=== PATIENT | female | born 1985 | race Caucasian/White ===

== ENCOUNTER 2016-11-09 12:25 | Emergency (ER) | payer OTHER ==
[~2016-11-09] VITALS: Ht 167.6 cm; Wt 65.0 kg
[~2016-11-09 12:25] MED LIST: DOXY100T17 PO; TRAM50 PO
[2016-11-09 12:33] VITALS: BP 120/63; PULSE 139; RESP 24; TEMP 98.4; O2SAT 93
[2016-11-09] MEDS ORDERED: SPRI28TA PO (13:02)
[2016-11-09 13:47] VITALS: BP 102/59; PULSE 110; RESP 15; O2SAT 97
[2016-11-09 15:00] VITALS: BP 115/64; PULSE 94; RESP 16; O2SAT 100
--- NOTE | 2016-11-09 18:49 | PD ---
HPI Chief Complaint: Alcohol/Drug Intoxication Time Seen by Provider: 12:46 Travel History International Travel<30 days: No Contact w/Intl Traveler<30days: No Traveled to known affect area: No History of Present Illness HPI 31-year-old female came to the emergency room for heroin overdose. She was given Narcan by EMS after she was found unresponsive in the hotel room by her friend. Patient says that she had a fight with her friend after which she did this. She was seen here in the emergency room and discharged this morning for the exact same issue. She seemed little groggy but was answering questions appropriately. FOR[facility]LY [facility], LATER [facility] Past Medical History Narrative Medical List of her past medical, surgical, social and family history is reviewed from the nursing note. Anxiety: Yes Depression: Yes Diminished Hearing: No Seizures: No ?: Not Past Surgical History Other Surgery: Yes (BREAST AUGMENTATION 2003) Social History Alcohol Use: Yes (none recently) Tobacco Use: Yes (04/12 ppd) Substance Use: Yes (dilaudid, last yesterday) Allergies-Medications (Allergen,Severity, Reaction): Coded Allergies: No Known Allergies (Unverified , 11/09/16) Comments No known drug allergies. Reported Meds & Prescriptions Reported Meds & Active Scripts Active Reported Sprintec 28 (Norgestimate-Ethinyl Estradiol) 0.25-35 mg-Mcg Tab 1 Tab PO DAILY Narrative Medication List of her home medications reviewed from the nursing note. Review of Systems Except as stated in HPI: all other systems reviewed are Neg Physical Exam Narrative GENERAL: Awake, alert, no obvious distress SKIN: Focused skin assessment warm/dry. Multiple track duran. HEAD: Atraumatic. Normocephalic. EYES: Pupils equal and round. No scleral icterus. No injection or drainage. ENT: No nasal bleeding or discharge. Mucous membranes pink and moist. NECK: Trachea midline. No JVD. CARDIOVASCULAR: Regular rate and rhythm. No murmur appreciated. RESPIRATORY: No accessory muscle use. Clear to auscultation. Breath sounds equal bilaterally. GASTROINTESTINAL: Abdomen soft, non-tender, nondistended. Hepatic and splenic margins not palpable. MUSCULOSKELETAL: No obvious deformities. No clubbing. No cyanosis. No edema. NEUROLOGICAL: Awake and alert. No obvious cranial nerve deficits. Motor grossly within normal limits. Normal speech. PSYCHIATRIC: Appropriate mood and affect; insight and judgment normal. Data Data Last Documented VS Vital Signs Date Time Temp Pulse Resp B/P Pulse Ox O2 Delivery O2 Flow Rate FiO2 11/09/16 15:00 94 16 115/64 100 Room Air 11/09/16 13:47 2 11/09/16 12:33 98.4 [facility] Medical Decision Making Medical Screen Exam Complete: Yes Emergency Medical Condition: Yes Medical Record Reviewed: Yes Differential Diagnosis Opiate overdose Narrative Course 6:47 PM I was just told by the nurse that patient had left earlier without telling anybody. Her friend was in the room for a while. She did not have an IV in. She remained awake and alert. She was not a [place] Act. Procedures EKG Prior to Arrival: No Diagnosis Primary Impression: Opiate overdose Qualified Code: T40.601A - Opiate overdose, accidental or unintentional, initial encounter Disposition: 07 AGAINST MEDICAL ADVICE Condition: Serious Jorge Alberto Hernandez MD Nov 09, 2016 18:49
== END 2016-11-09 19:10 | disposition left against medical advice (07) ==
LOC: NEPC 12:25
DX: T40.1X1A Poisoning by heroin, accidental (unintentional), initial encounter (principal); R40.0 Somnolence; Y92.59 Other trade areas as the place of occurrence of the external cause
CPT/HCPCS: 99283

== ENCOUNTER 2017-09-15 22:42 | Inpatient (IN) | payer OTHER ==
[~2017-09-15] VITALS: Ht 167.6 cm; Wt 57.0 kg
[~2017-09-15 22:42] MED LIST changes: -DOXY100T17 PO; +SPRI28TA PO; -TRAM50 PO
[2017-09-15 22:52] VITALS: BP 98/71; PULSE 88; RESP 20; TEMP 97.7; O2SAT 96
[2017-09-15 23:00] VITALS: BP 98/71; PULSE 86; RESP 10
--- NOTE | 2017-09-15 23:09 | PD ---
HPI Chief Complaint: OD/ Ingestion Time Seen by Provider: 22:59 Travel History International Travel<30 days: No Contact w/Intl Traveler<30days: No Traveled to known affect area: No History of Present Illness HPI 32yo F with PMH of polysubstance abuse was brought in by EVAC for what sounds like heroin overdose. Pt met a man today and went to his house and saw some white powder in the kitchen and thinks it was heroin so injected herself. EVAC said the man found her passed out on the bathroom floor and started pressing on her chest upon which she woke up immediately. Pt was not given any narcan. She did admit to using cocaine as well. Denies any chest pain, sob, n/v, abdominal pain, focal weakness or numbness. Pt is AAOx3 but said she is just angry about the situation and has no actual complaints. EVAC said the police was there and gave her the option of going [facility] and pt chose hospital. Pt has been here multiple times for heroin overdose. PFSH Past Medical History Anxiety: Yes Depression: Yes Diminished Hearing: No Seizures: No ?: Unknown Past Surgical History Other Surgery: Yes (BREAST AUGMENTATION 2003) Social History Alcohol Use: Yes (none recently) Tobacco Use: Yes (04/12 ppd) Substance Use: Yes (dilaudid, last yesterday) Allergies-Medications (Allergen,Severity, Reaction): Coded Allergies: No Known Allergies (Unverified Allergy, Unknown, 09/16/17) Reported Meds & Prescriptions Reported Meds & Active Scripts Active No Active Prescriptions or Reported Medications Reported Sprintec 28 (Norgestimate-Ethinyl Estradiol) 0.25-35 mg-Mcg Tab 1 Tab PO DAILY Review of Systems Except as stated in HPI: all other systems reviewed are Neg Physical Exam Narrative GENERAL: 32yo F not in distress. SKIN: Focused skin assessment warm/dry. HEAD: Atraumatic. Normocephalic. EYES: Pupils equal and round at 3mm. EOMI. ENT: No nasal bleeding or discharge. Mucous membranes pink and moist. NECK: Trachea midline. No JVD. CARDIOVASCULAR: Regular rate and rhythm. No murmur appreciated. RESPIRATORY: No accessory muscle use. Clear to auscultation. Breath sounds equal bilaterally. GASTROINTESTINAL: Abdomen soft, non-tender, nondistended. MUSCULOSKELETAL: No obvious deformities. No clubbing. No cyanosis. No edema. NEUROLOGICAL: Awake and alert. No obvious cranial nerve deficits. Motor grossly within normal limits in all extremities. Sensation intact. Normal speech. Data Data Last Documented VS Vital Signs Date Time Temp Pulse Resp B/P (MAP) Pulse Ox O2 Delivery O2 Flow Rate FiO2 09/16/17 01:44 98 09/15/17 23:00 86 10 98/71 (80) 09/15/17 22:52 97.7 Orders Orders Chest, Single Ap (09/15/17 ) Complete Blood Count With Diff (09/16/17 00:16) Basic Metabolic Panel (Bmp) (09/16/17 00:16) Ct Thorax/ Chest W Iv Contrast (09/16/17 ) Iohexol 350 Inj (Omnipaque 350 Inj) (09/16/17 01:22) Resp Et Co2 Monitor (09/16/17 ) Blood Culture (09/16/17 01:34) Vancomycin Inj (Vancomycin Inj) (09/16/17 01:45) Piperacil-Tazo 2.25 Gm Premix (Zosyn 2.2 (09/16/17 01:45) Type And Screen (09/16/17 01:34) Blood Product Administration (09/16/17 01:34) Sodium Chlor 0.9% 250 Ml Inj (Ns 250 Ml (09/16/17 01:45) Vancomycin Consult Pharmacy (Vancomycin (09/16/17 01:45) Cefepime Inj (Maxipime Inj) (09/16/17 09:00) Albuterol-Ipratropium Neb (Duoneb Neb) (09/16/17 01:45) Budeson-Formot 160-4.5 Mcg Inh (Symbicor (09/16/17 09:00) Guaifenesin Er (Mucinex Er) (09/16/17 09:00) Sputum Culture And Gram Stain (09/16/17 01:42) Admit To Inpatient (09/16/17 ) Vital Signs (Adult) Q4H (09/16/17 01:42) Activity Oob With Assistance (09/16/17 01:42) Guest Service Supervisor / Telemetry .CONTINUOUS (09/16/17 01:42) Intake + Output ANDREA.QSHIFT (09/16/17 01:42) Diet Regular Basic (09/16/17 Breakfast) Sodium Chlor 0.9% 1000 Ml Inj (Ns 1000 M (09/16/17 01:42) Sodium Chloride 0.9% Flush (Ns Flush) (09/16/17 01:45) Sodium Chloride 0.9% Flush (Ns Flush) (09/16/17 09:00) Metoclopramide Inj (Reglan Inj) (09/16/17 01:45) Comprehensive Metabolic Panel (09/17/17 06:00) Complete Blood Count With Diff (09/17/17 06:00) Scd Bilateral/Knee High ANDREA.BID (09/16/17 01:42) Rudi Bilateral/Knee High ANDREA.QSHIFT (09/16/17 01:48) Acetaminophen (Tylenol) (09/16/17 01:45) Docusate Sodium-Senna (Mitzi-Colace) (09/16/17 09:00) Magnesium Hydroxide Liq (Milk Of Magnesi (09/16/17 01:45) Sennosides (Senokot) (09/16/17 01:45) Bisacodyl Supp (Dulcolax Supp) (09/16/17 01:45) Lactulose Liq (Lactulose Liq) (09/16/17 01:45) Inpatient Certification (09/16/17 ) Admit Order (Ed Use Only) (09/16/17 01:52) Ferritin (09/16/17 00:53) Iron/Tibc Profile (09/16/17 00:53) Labs Laboratory Tests Test 09/16/17 00:53 White Blood Count 17.0 TH/MM3 Red Blood Count 4.66 MIL/MM3 Hemoglobin 6.9 GM/DL Hematocrit 24.6 % Mean Corpuscular Volume 52.7 FL Mean Corpuscular Hemoglobin 14.8 PG Mean Corpuscular Hemoglobin Concent 28.1 % Red Cell Distribution Width 24.3 % Platelet Count 420 TH/MM3 Mean Platelet Volume 7.9 FL Neutrophils (%) (Auto) 76.1 % Lymphocytes (%) (Auto) 11.4 % Monocytes (%) (Auto) 9.7 % Eosinophils (%) (Auto) 2.6 % Basophils (%) (Auto) 0.2 % Neutrophils # (Auto) 12.9 TH/MM3 Lymphocytes # (Auto) 1.9 TH/MM3 Monocytes # (Auto) 1.7 TH/MM3 Eosinophils # (Auto) 0.4 TH/MM3 Basophils # (Auto) 0.0 TH/MM3 CBC Comment AUTO DIFF Differential Total Cells Counted 100 Neutrophils % (Manual) 86 % Band Neutrophils % 2 % Lymphocytes % 6 % Monocytes % 5 % Eosinophils % 1 % Neutrophils # (Manual) 15.0 TH/MM3 Differential Comment FINAL DIFF MANUAL Toxic Granulation 3+ Platelet Estimate NORMAL Platelet Morphology Comment NORMAL Tear Drop Cells 1+ Ovalocytes 1+ Acanthocytes OCC Blood Urea Nitrogen 14 MG/DL Creatinine 0.81 MG/DL Random Glucose 96 MG/DL Calcium Level 8.4 MG/DL Sodium Level 137 MEQ/L Potassium Level 4.6 MEQ/L Chloride Level 103 MEQ/L Carbon Dioxide Level 26.0 MEQ/L Anion Gap 8 MEQ/L Estimat Glomerular Filtration Rate 81 ML/MIN Iron Level 27 MCG/DL Total Iron Binding Capacity 255 MCG/DL Percent Iron Saturation 10.6 % Ferritin 78 NG/ML MDM Medical Decision Making Medical Screen Exam Complete: Yes Emergency Medical Condition: Yes Differential Diagnosis Heroin overdose vs. polysubstance abuse Narrative Course 32yo F here with what sounds like a heroin overdose. Pt is easily arousable but does nod off. Placed on end tidal CO2 monitoring. Did not give narcan initially because she is easily arousable and saturating at 97% when fully awake. Pt had chest compressions so CXR was ordered. CXR showed multiple densities throughout the lungs possible multifocal bronchopneumonia versus metastatic disease. Pt did mention having infection in her blood in another hospital and she signed AMA. Not a good historian and does not know how long ago it was. Pt is at risk for septic emboli so CT chest ordered. CT chest with contrast showed innumerable round patchy areas of infiltrate scattered throughout the lungs. No PE. Multifocal bronchopneumonia most likely consideration. Labs reviewed, leukocytosis at 17,000. H/H is low at 6.9/24.6. This is decreased from 10.5/33.5 on 03/2016. +Toxic granulation. Pt empirically covered with vancomycin and zosyn. Blood cultures drawn. Discussed with Dr. Sullivan and accepted to her service. Pt is on the CO2 monitoring and her RR is down to 6 and there are periods where she becomes apneic so decided to give narcan 0.2mg. Pt responded immediately. She was then given another dose of narcan 0.2mg IV because her respiration went down again. Feel that since pt needs continuous CO2 monitoring, decided to upgrade pt to CIC. Pt is waiting for a CIC bed and after total of 0.4mg narcan, still going back down to RR 7 so started on narcan drip. Will start low at 0.2mg an hour and titrate as needed. Critical Care Narrative Aggregate critical care time was 50 minutes. Time to perform other separately billable procedures was not included in the critical care time. My time did not include minutes spent treating any other patients simultaneously or on activities that did not directly contribute to the patient's treatment. The services I provided to this patient were to treat and/or prevent clinically significant deterioration that could result in: cardiovascular collapse or . I provided critical care services requiring my management, as noted below: Chart data review, documentation time, medication orders and management, vital sign assessments/reviewing monitor data, ordering and reviewing lab tests, ordering and interpreting/reviewing x-rays and diagnostic studies, care of the patient and discussion of the patient with the admitting physicians. HemaPrompt Point of Care Internal Pos. & Neg. Controls: Passed Fecal Specimen Occult Blood: Negative Diagnosis Primary Impression: Accidental heroin overdose Qualified Codes: T40.1X1A - Poisoning by heroin, accidental (unintentional), initial encounter Additional Impression: Pneumonia Qualified Codes: J18.9 - Pneumonia, unspecified organism Admitting Information Admitting Physician Requests: it Shelli Hurley DO Sep 15, 2017 23:09
--- NOTE | 2017-09-15 23:29 | RADRPT ---
EXAM DATE: 09/15/2017 11:23 PM EDT AGE/SEX: 32 years / Female INDICATIONS: Cough and congestion. CLINICAL DATA: This is the patient's initial encounter. Patient reports that signs and symptoms have been present for 1 day and indicates a pain score of Nonresponsive. MEDICAL/SURGICAL HISTORY: Non-responsive. Non-responsive. COMPARISON: No prior exams available for comparison. FINDINGS: There is a rounded infiltrate or masses throughout the lungs. There is a lobulated 7.3 x 7.6 cm densi ty arising around the right hilum. There is a 4 cm mass adjacent to left cardiac border. There are ot her nodular densities throughout the lungs. Multifocal bronchopneumonia is within the differential. CONCLUSION: Multiple densities throughout the lungs possible multifocal bronchopneumonia versus metastatic diseas e, obviously unusual for a 32-year-old female Electronically signed by: Jasen Madrid MD 09/15/2017 11:28 PM EDT
[2017-09-16] VITALS (13 sets, daily range): BP systolic 103–129; BP diastolic 58–82; PULSE 52–96; RESP 11–18; TEMP 97.4–99.8; O2SAT 93–100
[2017-09-16 01:08] LABS: AUTOMATED NEUTROPHIL # 12.9 TH/MM3 (1.8-7.7); BASOPHIL % 0.2 % (0.0-2.0); EOSINOPHIL # 0.4 TH/MM3 (0-0.4); EOSINOPHIL % 2.6 % (0.0-4.0); HEMATOCRIT 24.6 % (35.0-46.0); LYMPH % 11.4 % (9.0-44.0); LYMPHOCYTE # 1.9 TH/MM3 (1.0-4.8); MEAN CELL VOLUME 52.7 FL (80.0-100.0); MEAN CORPUSCULAR HEMOGLOBIN 14.8 PG (27.0-34.0); MEAN PLATELET VOLUME 7.9 FL (7.0-11.0); MONO % 9.7 % (0.0-8.0); MONOCYTE # 1.7 TH/MM3 (0-0.9); NEUT % 76.1 % (16.0-70.0); PLATELET COUNT 420 TH/MM3 (150-450); RED BLOOD COUNT 4.66 MIL/MM3 (4.00-5.30); RED CELL DISTRIBUTION WIDTH 24.3 % (11.6-17.2)
[2017-09-16 01:11] LABS: MEAN CORPUSCULAR HGB CONC 28.1 % (32.0-36.0)
[2017-09-16 01:14] LABS: HEMOGLOBIN 6.9 GM/DL (11.6-15.3)
[2017-09-16 01:17] LABS: BLOOD UREA NITROGEN 14 MG/DL (7-18); CALCIUM 8.4 MG/DL (8.5-10.1); CHLORIDE 103 MEQ/L (98-107); CREATININE 0.81 MG/DL (0.50-1.00); GLOMERULAR FILTRATION RATE 81 ML/MIN (>89); GLUCOSE,RANDOM 96 MG/DL (74-106); SODIUM (NA) 137 MEQ/L (136-145)
[2017-09-16] MEDS ORDERED: IOHEXOL 350 MG/ML 10 ML VIAL (for RAD DIAG) IVCONTRAST ONE (01:22)
--- NOTE | 2017-09-16 01:28 | RADRPT ---
EXAM DATE: 09/16/2017 1:22 AM EDT AGE/SEX: 32 years / Female INDICATIONS: Abnormal chest x-ray. CLINICAL DATA: This is the patient's initial encounter. Patient reports that signs and symptoms have been present for 1 day and indicates a pain score of 0/10. MEDICAL/SURGICAL HISTORY: . Substance abuse. None. RADIATION DOSE: 7.72 CTDI (mGy) COMPARISON: No prior exams available for comparison. TECHNIQUE: Multiple contiguous axial images were obtained through the chest during bolus infusion of 75 ml Omnipaque 350 (iohexol) nonionic water-soluble contrast as a single exam dose. Images were obtained in suspended respiration using multiple row detector helical technique. Using automated exp osure control and adjustment of the mA and/or kV according to patient size, radiation dose was kept a s low as reasonably achievable to obtain optimal diagnostic quality images. FINDINGS: Lungs: There are innumerable rounded parenchymal densities scattered throughout the lungs. There are air bronchograms from the masses suggesting multifocal areas of airspace disease possible pneumonia. Mediastinum: There is good visualization of the great vessels of the middle mediastinum. No evidenc e of mediastinal or hilar adenopathy/mass. Pleurae: No evidence of focal thickening or pleural effusion. Axillae: Unremarkable. Bony Structures: Unremarkable. Miscellaneous: The examination was extended to include the upper abdomen, and both adrenal glands ar e normal in size and configuration. CONCLUSION: 1. Innumerable rounded patchy areas of infiltrate scattered throughout the lungs. I don't see any ev idence of a pulmonary embolism. Multifocal bronchopneumonia most likely consideration. Electronically signed by: Jasen Madrid MD 09/16/2017 1:26 AM EDT
[2017-09-16 01:38] LABS: BANDS 2 % (0-6); LYMPHOCYTES 6 % (9-44); MONOCYTES 5 % (0-8); POLYS (SEG NEUTROPHILS) 86 % (16-70)
[2017-09-16 01:39] LABS: TOXIC GRANULATION 3+ (NORMAL)
[2017-09-16 01:40] LABS: ACANTHOCYTES OCC (NORMAL); OVALOCYTES 1+ (NORMAL); TEARDROP RBCS 1+ (NORMAL)
[2017-09-16] MEDS ORDERED: SODIUM CHLOR 0.9% 250 ML INJ 250 ML IV ONE (01:45)
[2017-09-16] MEDS ORDERED: SENNOSIDES 8.6 MG TAB PO PRN (01:45)
[2017-09-16] MEDS ORDERED: PIPERACIL-TAZO 2.25 GM PREMIX 50 ML IV ONE (01:45)
[2017-09-16] MEDS ORDERED: MAGNESIUM HYDROXIDE SUSP 30 ML CUP PO PRN (01:45)
[2017-09-16] MEDS ORDERED: BISACODYL 10 MG SUPP RECTAL PRN (01:45)
[2017-09-16] MEDS ORDERED: Vancomycin Consult Pharmacy 1 EA OTHER SCH (01:45)
[2017-09-16] MEDS ORDERED: VANCOMYCIN INJ 850 MG in SODIUM CHLOR 0.9% 250 ML INJ 250 ML IV ONE (01:45)
[2017-09-16] MEDS ORDERED: LACTULOSE SYRUP 20 GM/30 ML CUP PO PRN (01:45)
[2017-09-16] MEDS ORDERED: SODIUM CHLORIDE 0.9% FLUSH 10 ML FLUSH IV FLUSH PRN (01:45)
[2017-09-16] MEDS ORDERED: RESP: ALBUTEROL 2.5 MG/IPRATROPIUM 0.5 MG NEB (PRN) NEB (01:45)
[2017-09-16] MEDS ORDERED: METOCLOPRAMIDE HCL 10 MG/2 ML VIAL IV PUSH PRN (01:45)
[2017-09-16] MEDS ORDERED: SODIUM CHLOR 0.9% 1000 ML INJ 1,000 ML IV ONE (02:00)
--- NOTE | 2017-09-16 02:20 | HHI.HP ---
HPI Service [facility] Primary Care Physician Unknown Admission Diagnosis Multiple pneumonia, heroin overdose, anemia Diagnoses: (1) Bronchopneumonia Diagnosis: Principal (2) Drug overdose Diagnosis: Principal (3) Anemia Diagnosis: Principal Travel History International Travel<30 Days: No Contact w/Intl Traveler <30 Da: No Traveled to Known Affected Are: No History of Present Illness This is a 32-year-old female with a PMH of Anxiety, Depression, Tobacco Abuse and IVDU w/ Dilaudid/Heroin who was brought to the ER by EMS for apparent Heroin Overdose, multiple ER presentations in the past for similar episodes. Per report, pt had gone to a friend's house and injected some white powder she found on the counter which she thought was heroin. Friend found her shortly afterwards unresponsive, apparently attempted chest compressions at which point pt immediately woke up. No Narcan given by EMS. Currently awake, alert, arousable. Also admits to using Cocaine. On arrival, BP 98/71, HR 88, O2 sat 96% on RA, Afebrile. WBC 17. Hemoglobin 6.9, previously 10.5 on 04/01/2016. Chemistry unremarkable. CXR w/ multiple densities bilateral lungs possible multifocal bronchopneumonia vs metastatic disease. CT Chest w/ innumerable rounded patchy clary of infiltrate, multifocal bronchopneumonia. S/p Vanc/ Zosyn. Hemoccult (-). 2u pRBC ordered in ER, pending transfusion Review of Systems Except as stated in HPI: all other systems reviewed are Neg ROS: 14 point review of systems otherwise negative. Past Family Social History Past Medical History PMH: Anxiety, Depression, Tobacco Abuse and IVDU w/ Dilaudid/Heroin Past Surgical History PAST SURGICAL HISTORY: Breast Augmentation Allergies: Coded Allergies: No Known Allergies (Unverified Allergy, Unknown, 09/16/17) Family History PAST FAMILY HISTORY: Reviewed. No h/o DM or CAD Social History PAST SOCIAL HISTORY: History of alcohol. Positive for tobacco. +IVDU Heroin/ Dilaudid +Cocaine. Physical Exam Vital Signs Vital Signs Date Time Temp Pulse Resp B/P (MAP) Pulse Ox O2 Delivery O2 Flow Rate FiO2 09/16/17 01:44 98 09/15/17 22:52 97.7 88 20 98/71 (80) 96 Physical Exam PE: GENERAL: Young white female in no acute distress, sleepy but arousable, crying when she wakes up, minimally cooperative. HEENT: PERRLA, EOMI. No scleral icterus or conjunctival pallor. No lid lag or facial droop. CARDIOVASCULAR: Regular rate and rhythm. No obvious murmurs to auscultation. No chest tenderness to palpation. RESPIRATORY: No obvious rhonchi or wheezing. Clear to auscultation. Breath sounds equal bilaterally. GASTROINTESTINAL: Abdomen soft, non-tender, nondistended. BS normal. MUSCULOSKELETAL: Extremities without clubbing, cyanosis, or edema. No obvious deformities. NEUROLOGICAL: Lethargic due to drugs but arousable, answers questions. No focal neurologic deficits. Moving both upper and lower extremities spontaneously. Laboratory Laboratory Tests Test 09/16/17 00:53 White Blood Count 17.0 Red Blood Count 4.66 Hemoglobin 6.9 Hematocrit 24.6 Mean Corpuscular Volume 52.7 Mean Corpuscular Hemoglobin 14.8 Mean Corpuscular Hemoglobin Concent 28.1 Red Cell Distribution Width 24.3 Platelet Count 420 Mean Platelet Volume 7.9 Neutrophils (%) (Auto) 76.1 Lymphocytes (%) (Auto) 11.4 Monocytes (%) (Auto) 9.7 Eosinophils (%) (Auto) 2.6 Basophils (%) (Auto) 0.2 Neutrophils # (Auto) 12.9 Lymphocytes # (Auto) 1.9 Monocytes # (Auto) 1.7 Eosinophils # (Auto) 0.4 Basophils # (Auto) 0.0 CBC Comment AUTO DIFF Differential Total Cells Counted 100 Neutrophils % (Manual) 86 Band Neutrophils % 2 Lymphocytes % 6 Monocytes % 5 Eosinophils % 1 Neutrophils # (Manual) 15.0 Differential Comment FINAL DIFF MANUAL Toxic Granulation 3+ Platelet Estimate NORMAL Platelet Morphology Comment NORMAL Tear Drop Cells 1+ Ovalocytes 1+ Acanthocytes OCC Blood Urea Nitrogen 14 Creatinine 0.81 Random Glucose 96 Calcium Level 8.4 Sodium Level 137 Potassium Level 4.6 Chloride Level 103 Carbon Dioxide Level 26.0 Anion Gap 8 Estimat Glomerular Filtration Rate 81 Result Diagram: 09/16/175209/16/1752 Caprini VTE Risk Assessment Caprini VTE Risk Assessment: No/Low Risk (score <= 1) Caprini Risk Assessment Model Point Value = 1 Point Value = 2 Point Value = 3 Point Value = 5 Age 41-60 Minor surgery BMI > 25 kg/m2 Swollen legs Varicose veins or History of unexplained or recurrent spontaneous Oral contraceptives or hormone replacement Sepsis (< 1 month) Serious lung disease, including pneumonia (< 1 month) Abnormal pulmonary function Acute myocardial infarction Congestive heart failure (< 1 month) History of inflammatory bowel disease Medical patient at bed rest Age 61-74 Arthroscopic surgery Major open surgery (> 45 min) Laparoscopic surgery (> 45 min) Malignancy Confined to bed (> 72 hours) Immobilizing plaster cast Central venous access Age >= 75 History of VTE Family history of VTE Factor V Leiden Prothrombin [id number] Lupus anticoagulant Anticardiolipin antibodies Elevated serum homocysteine Heparin-induced thrombocytopenia Other congenital or acquired thrombophilia Stroke (< 1 month) Elective arthroplasty Hip, pelvis, or leg fracture Acute spinal cord injury (< 1 month) Prophylaxis Regimen Total Risk Factor Score Risk Level Prophylaxis Regimen 0-1 Low Early ambulation 2 Moderate Order ONE of the following: *Sequential Compression Device (SCD) *Heparin 5000 units SQ BID 3-4 Higher Order ONE of the following medications: *Heparin 5000 units SQ TID *Enoxaparin/Lovenox 40 mg SQ daily (WT < 150 kg, CrCl > 30 mL/min) *Enoxaparin/Lovenox 30 mg SQ daily (WT < 150 kg, CrCl > 10-29 mL/min) *Enoxaparin/Lovenox 30 mg SQ BID (WT < 150 kg, CrCl > 30 mL/min) AND/OR *Sequential Compression Device (SCD) 5 or more Highest Order ONE of the following medications: *Heparin 5000 units SQ TID (Preferred with Epidurals) *Enoxaparin/Lovenox 40 mg SQ daily (WT < 150 kg, CrCl > 30 mL/min) *Enoxaparin/Lovenox 30 mg SQ daily (WT < 150 kg, CrCl > 10-29 mL/min) *Enoxaparin/Lovenox 30 mg SQ BID (WT < 150 kg, CrCl > 30 mL/min) AND *Sequential Compression Device (SCD) Assessment and Plan Problem List: (1) Bronchopneumonia ICD Code: J18.0 - Bronchopneumonia, unspecified organism (2) Anemia ICD Code: D64.9 - Anemia, unspecified (3) Drug overdose ICD Code: T50.901A - Poisoning by unspecified drugs, medicaments and biological substances, accidental (unintentional), initial encounter Assessment and Plan A/P: 1. Bronchopneumonia: CXR w/ multiple densities bilaterally possibly multifocal bronchopneumonia versus metastatic disease. CT Chest with innumerable rounded patchy areas of infiltrate bilaterally likely multifocal bronchopneumonia, images reviewed by me. S/p Vanc/Zosyn in ER. Will continue w / broad spectrum antibiotics. DuoNeb, Symcort, Mucinex, Check Sputum Cultures. Possible Pulmonology consult if no improvement for bronch. 2. Anemia: Hgb 6.9, previously 10.5 on 04/01/16. Hemoccult negative. 2u pRBC ordered, pending transfusion, will recheck Hgb/Hct after transfusion completed. 3. Overdose: Accidental overdose w/ what appears to be Heroin, multiple ER presentations in the past for same. No Narcan given, pt lethargic but arousable /answering questions. Telemetry. 4. DVT Prophylaxis: SCD/Teds 5. Social work for d/c planning as needed. 6. Case discussed w/ ER physician at length, labs/records/imaging reviewed by me. Physician Certification 2 Midnight Certification Type: Admission for Inpatient Services Order for Inpatient Services The services are ordered in accordance with Medicare regulations or non- Medicare payer requirements, as applicable. In the case of services not specified as inpatient-only, they are appropriately provided as inpatient services in accordance with the 2-midnight benchmark. Estimated LOS (days): 2 days is the estimated time the patient will need to remain in the hospital, assuming treatment plan goals are met and no additional complications. Post-Hospital Plan: Not yet determined Holly Sullivan MD Sep 16, 2017 02:20
[2017-09-16] MEDS: SODIUM CHLOR 0.9% 1000 ML INJ 1,000 ML IV SCH ×3 (02:57→21:32)
[2017-09-16] MEDS ORDERED: NALOXONE HCL 0.4 MG/ML AMP IV PUSH ONE (03:00)
[2017-09-16] MEDS ORDERED: NALOXONE INJ 4 MG in DEXTROSE 5% IN WATER INJ 246 ML IV PRN ×2 (05:15)
[2017-09-16] MEDS: DOCUSATE SODIUM 50 MG/SENNA 8.6 MG TAB PO SCH ×2 (08:51→21:21)
[2017-09-16] MEDS: SODIUM CHLORIDE 0.9% FLUSH 10 ML FLUSH IV FLUSH SCH ×2 (08:51→21:31)
[2017-09-16] MEDS: BUDESONIDE-FORMOTEROL 160/4.5 MCG INHALER INH SCH ×2 (08:51→21:31)
[2017-09-16] MEDS: guaiFENesin E.R. 600 MG TAB PO SCH ×2 (08:51→21:21)
[2017-09-16] MEDS: CEFEPIME INJ 1,000 MG in SODIUM CHLORIDE 0.9% INJ 100 ML IV SCH ×2 (10:22→21:22)
[2017-09-16] MEDS: VANCOMYCIN 1,000 MG/NS 250 ML IV SCH ×4 (12:05→22:09)
[2017-09-17] VITALS (8 sets, daily range): BP systolic 119–133; BP diastolic 68–83; PULSE 71–103; RESP 16; TEMP 97.4–99.3; O2SAT 95–99
[2017-09-17 07:34] LABS: AUTOMATED NEUTROPHIL # 11.8 TH/MM3 (1.8-7.7); BASOPHIL # 0.1 TH/MM3 (0-0.2); BASOPHIL % 0.6 % (0.0-2.0); EOSINOPHIL # 0.5 TH/MM3 (0-0.4); EOSINOPHIL % 3.2 % (0.0-4.0); HEMATOCRIT 28.9 % (35.0-46.0); HEMOGLOBIN 8.5 GM/DL (11.6-15.3); LYMPH % 10.6 % (9.0-44.0); LYMPHOCYTE # 1.6 TH/MM3 (1.0-4.8); MEAN CELL VOLUME 54.7 FL (80.0-100.0); MONO % 5.8 % (0.0-8.0); MONOCYTE # 0.8 TH/MM3 (0-0.9); NEUT % 79.8 % (16.0-70.0); PLATELET COUNT 472 TH/MM3 (150-450); RED BLOOD COUNT 5.29 MIL/MM3 (4.00-5.30); RED CELL DISTRIBUTION WIDTH 29.1 % (11.6-17.2); WHITE BLOOD COUNT 14.8 TH/MM3 (4.0-11.0)
[2017-09-17 07:39] LABS: MEAN CORPUSCULAR HGB CONC 29.3 % (32.0-36.0)
[2017-09-17 08:17] LABS: ALBUMIN 1.9 GM/DL (3.4-5.0); ALKALINE PHOSPHATASE 232 U/L (45-117); ALT (GPT) 11 U/L (10-53); AST (GOT) 17 U/L (15-37); BICARBONATE 23.6 MEQ/L (21.0-32.0); BLOOD UREA NITROGEN 9 MG/DL (7-18); CALCIUM 8.6 MG/DL (8.5-10.1); CHLORIDE 104 MEQ/L (98-107); CREATININE 0.73 MG/DL (0.50-1.00); GLOMERULAR FILTRATION RATE 92 ML/MIN (>89); GLUCOSE,RANDOM 76 MG/DL (74-106); SODIUM (NA) 140 MEQ/L (136-145); TOTAL BILIRUBIN ADULT 0.3 MG/DL (0.2-1.0); TOTAL PROTEIN 7.7 GM/DL (6.4-8.2)
[2017-09-17] MEDS: DOCUSATE SODIUM 50 MG/SENNA 8.6 MG TAB PO SCH ×2 (08:43→19:51)
[2017-09-17] MEDS: guaiFENesin E.R. 600 MG TAB PO SCH ×2 (08:43→19:50)
[2017-09-17] MEDS: CEFEPIME INJ 1,000 MG in SODIUM CHLORIDE 0.9% INJ 100 ML IV SCH ×2 (08:44→19:51)
[2017-09-17] MEDS: SODIUM CHLOR 0.9% 1000 ML INJ 1,000 ML IV SCH ×2 (08:44→17:42)
[2017-09-17] MEDS: SODIUM CHLORIDE 0.9% FLUSH 10 ML FLUSH IV FLUSH SCH ×2 (08:44→19:50)
[2017-09-17] MEDS: BUDESONIDE-FORMOTEROL 160/4.5 MCG INHALER INH SCH ×2 (08:46→19:50)
[2017-09-17 09:43] LABS: ACANTHOCYTES OCC (NORMAL); TARGET CELLS 1+ (NORMAL)
[2017-09-17 09:44] LABS: OVALOCYTES 1+ (NORMAL)
[2017-09-17] MEDS ORDERED: PHARMACY ORDERED LAB ONE (09:45)
[2017-09-17] MEDS: VANCOMYCIN 1,000 MG/NS 250 ML IV SCH ×2 (14:00)
--- NOTE | 2017-09-17 22:11 | MB ---
cc: Liz Hill MD DATE: 09/17/2017 REASON FOR CONSULTATION: Pneumonia. HISTORY OF PRESENT ILLNESS: Ms. Collado is a 32-year-old female who has known history of IV drug use, presented to the emergency room with question of drug overdose. The patient injected some unknown powder, after which she became unconscious; however, she was easily awoken by a friend and brought to the emergency room. Chest x-ray revealing evidence of bilateral lung infiltrates, confirmed by CT scan of the chest, presently on antibiotic therapy. The patient tells me as well that she notes numerous lymph nodes throughout her body for several months now. PAST MEDICAL HISTORY: Anxiety, depression, tobacco abuse, IV drug use, used Dilaudid, heroin in the past, history of breast augmentation. ALLERGIES: NONE KNOWN TO MEDICATION. FAMILY HISTORY: Noncontributory. SYSTEMS REVIEW: A 12-point review of systems as per HPI and past history, otherwise negative. PHYSICAL EXAMINATION: VITAL SIGNS: Temperature 98, pulse 80, respiration 18, blood pressure 100/60. HEENT: Unremarkable. Eyes without icterus. NECK: Large adenopathy noted submandibularly in both sides. Bilateral axillary nodes noted as well. CHEST: No dullness to percussion. Clear to auscultation. CARDIOVASCULAR: PMI not appreciated. S1, S2 audible. No murmur. No rub. ABDOMEN: Lax, audible bowel sounds. EXTREMITIES: No clubbing, cyanosis or edema. LABORATORY DATA: Admission hemoglobin 6.9, repeat 8.5. White count 14,000, platelets at 472,000. Sodium 140, potassium 3.7, BUN 9, creatinine 0.7. IMAGING: CT scan of the chest with numerous patchy infiltrates bilaterally, suggestive of bronchopneumonia. IMPRESSION: 1. Bilateral lung infiltrates. 2. Anemia, etiology unclear. 3. Generalized lymphadenopathy. 4. Intravenous drug use. 5. Tobacco abuse. PLAN: The patient has been started on antibiotic therapy, which needs to be continued. The patient's adenopathy is quite concerning. Obviously, infectious etiologies are the consideration; however, lymphoid malignancy has to be considered. Hematology should be consulted for evaluation of same, as well as requesting interventional radiology to perform a needle biopsy either on the cervical nodes or the axillary nodes, whichever they feel easier to approach. I would ask infectious disease to see the patient as well for antibiotic management as needed. I will follow the patient's course, along with you and depending on progress, proceed further. Liz Hill MD WWW/ANISA/corby , 06:35 PM , 07:26 PM
[2017-09-17] MEDS: ACETAMINOPHEN 325 MG TAB PO PRN (23:21)
[2017-09-18 00:36] LABS: CREATININE 0.84 MG/DL (0.50-1.00)
[2017-09-18] MEDS ORDERED: PHARMACY ORDERED LAB ONE (01:45)
[2017-09-18] MEDS ORDERED: VANCOMYCIN 1,000 MG/NS 250 ML IV SCH ×4 (02:00→10:00)
[2017-09-18] MEDS: SODIUM CHLOR 0.9% 1000 ML INJ 1,000 ML IV SCH ×2 (02:41→13:42)
[2017-09-18 04:17] VITALS: BP 117/75; PULSE 75; RESP 17; TEMP 98.3; O2SAT 98
[2017-09-18 08:12] VITALS: BP 108/66; PULSE 86; RESP 20; TEMP 97.8; O2SAT 97
[2017-09-18] MEDS ORDERED: ALPRAZolam 1 MG TAB PO SCH (09:00)
[2017-09-18] MEDS: DOCUSATE SODIUM 50 MG/SENNA 8.6 MG TAB PO SCH (09:00)
[2017-09-18] MEDS ORDERED: metroNIDAZOLE 500 MG TAB PO SCH (09:00)
[2017-09-18] MEDS ORDERED: SERTRALINE HCL 100 MG TAB PO SCH (09:00)
[2017-09-18] MEDS: guaiFENesin E.R. 600 MG TAB PO SCH (09:14)
[2017-09-18] MEDS: BUDESONIDE-FORMOTEROL 160/4.5 MCG INHALER INH SCH (09:14)
[2017-09-18] MEDS: SODIUM CHLORIDE 0.9% FLUSH 10 ML FLUSH IV FLUSH SCH (09:14)
[2017-09-18] MEDS: CEFEPIME INJ 1,000 MG in SODIUM CHLORIDE 0.9% INJ 100 ML IV SCH (09:15)
[2017-09-18] MEDS: ACETAMINOPHEN 325 MG TAB PO PRN (09:16)
[2017-09-18 09:20] LABS: % SATURATION IRON PROFILE 10.6 % (20-50); IRON (FE) 27 MCG/DL (50-170); TOTAL IRON BINDING CAPACITY 255 MCG/DL (250-450)
[2017-09-18 09:23] LABS: FERRITIN 78 NG/ML (8-252)
[2017-09-18] MEDS ORDERED: DIATRIZOATE MEGLUM/DIATRIZOATE SOD 9 ML CUP PO ONE (09:30)
[2017-09-18] MEDS ORDERED: VANCOMYCIN 1 GM/200 ML PREMIX IV SCH (10:00)
--- NOTE | 2017-09-18 11:47 | HHI.PR ---
Subjective Remarks Follow up for heroin overdose, bronchopneumonia, anemia, lymphadenopathy. The patient reports subjective fevers with sweats overnight. She has continued nonproductive cough. Denies any chest pain or shortness of breath. She reports painful right axillary lymphadenopathy. She states she has noticed diffuse lymphadenopathy throughout axillary and cervical regions for multiple months now however has not been able to follow-up with a PCP. She reports decreased appetite however denies any significant weight loss. Denies any other medical complaints at this time. Objective Vitals Vital Signs Date Time Temp Pulse Resp B/P (MAP) Pulse Ox O2 Delivery O2 Flow Rate FiO2 09/18/17 10:25 22 09/18/17 08:12 97.8 86 20 108/66 (80) 97 09/18/17 04:17 98.3 75 17 117/75 (89) 98 09/17/17 23:45 98.7 81 16 122/68 (86) 97 09/17/17 19:19 98.4 87 16 120/81 (94) 98 09/17/17 15:31 98.4 103 16 133/72 (92) 95 I/O 09/17/17 09/17/17 09/17/17 09/18/17 09/18/17 09/18/17 07:00 15:00 23:00 07:00 15:00 23:00 Intake Total 2200 ml 1990 ml 350 ml Balance 2200 ml 1990 ml 350 ml Intake Oral 740 ml IV Total 2200 ml 1250 ml 350 ml # Voids 3 1 # Bowel Movements 0 Result Diagram: 09/17/17 0548 09/18/17 0005 Imaging Last Impressions Chest CT 09/16/17 0000 Signed Impressions: CONCLUSION: 1. Innumerable rounded patchy areas of infiltrate scattered throughout the john gs. I don't see any evidence of a pulmonary embolism. Multifocal bronchopneumon ia most likely consideration. Chest X-Ray 09/15/17 0000 Signed Impressions: CONCLUSION: Multiple densities throughout the lungs possible multifocal bronchopneumonia ve rsus metastatic disease, obviously unusual for a 32-year-old female Objective Remarks GENERAL: Thin young female patient in NAD. SKIN: Warm and dry. No rash. Multiple puncture wounds on upper extremities. HEENT: Normocephalic. Atraumatic. Pupils equal and round. Mucous membranes pink and moist. NECK: Supple. Trachea midline. Submandibular, anterior cervical, and axillary lymphadenopathy noted. CARDIOVASCULAR: Regular rate and rhythm. No murmur appreciated. RESPIRATORY: No accessory muscle use. Clear to auscultation. Breath sounds equal bilaterally. GASTROINTESTINAL: Abdomen soft, non-tender, nondistended. Normoactive bowel sounds x4. MUSCULOSKELETAL: No obvious deformities. Extremities without clubbing, cyanosis , or edema. NEUROLOGICAL: AAOx4. No obvious cranial nerve deficits. Motor grossly within normal limits. Moving all extremities spontaneously. Normal speech. Medications and IVs Current Medications Medications (Trade) Dose Ordered Sig/Wanda Route Start Time Stop Time Status Last Admin Pharmacy Profile Note 0 ml @ 0 mls/hr UNSCH OTHER 09/16/17 01:45 Cefepime HCl 1000 mg/Sodium Chloride 100 ml @ 200 mls/hr Q12H IV 09/16/17 09:00 09/18/17 09:15 (Duoneb Neb) 1 ampule Q4HR NEB PRN NEB 09/16/17 01:45 (Symbicort 160-4.5 Mcg Inh) 2 puff Q12HR INH 09/16/17 09:00 09/18/17 09:14 (Mucinex Er) 600 mg BID PO 09/16/17 09:00 09/18/17 09:14 Sodium Chloride 1,000 ml @ 100 mls/hr Q10H IV 09/16/17 01:42 09/18/17 13:42 (NS Flush) 2 ml UNSCH PRN IV FLUSH 09/16/17 01:45 (NS Flush) 2 ml BID IV FLUSH 09/16/17 09:00 09/18/17 09:14 (Reglan Inj) 5 mg Q6H PRN IV PUSH 09/16/17 01:45 (Tylenol) 650 mg Q6H PRN PO 09/16/17 01:45 09/18/17 09:16 (Mitzi-Colace) 1 tab BID PO 09/16/17 09:00 09/17/17 19:51 (Milk Of Magnesia Liq) 30 ml Q12H PRN PO 09/16/17 01:45 (Senokot) 17.2 mg Q12H PRN PO 09/16/17 01:45 (Dulcolax Supp) 10 mg DAILY PRN RECTAL 6/10/18 01:45 (Lactulose Liq) 30 ml DAILY PRN PO 09/16/17 01:45 (Flagyl) 500 mg Q8H PO 09/18/17 09:00 09/18/17 09:15 (Zoloft) 100 mg DAILY PO 09/18/17 09:00 09/18/17 09:19 (Xanax) 1 mg BID PO 09/18/17 09:00 09/18/17 09:19 ([facility] Ordered Lab Info) SPECIFIC LAB TO BE DRAWN:VANCOMYCIN TROUGH DATE TO... ONCE ONCE .XX 09/19/17 01:45 09/19/17 01:46 Vancomycin HCl 1000 mg/Sodium Chloride 250 ml @ 250 mls/hr Q8H IV 09/18/17 10:00 09/18/17 10:18 A/P Problem List: (1) Bronchopneumonia ICD Code: J18.0 - Bronchopneumonia, unspecified organism (2) Anemia ICD Code: D64.9 - Anemia, unspecified (3) Drug overdose ICD Code: T50.901A - Poisoning by unspecified drugs, medicaments and biological substances, accidental (unintentional), initial encounter Assessment and Plan 32-year-old female with a PMH of Anxiety, Depression, Tobacco Abuse and IVDU w/ Dilaudid/Heroin who was brought to the ER by EMS for apparent Heroin Overdose, found to have pneumonia, anemia, and diffuse lymphadenopathy. Sepsis with Bronchopneumonia: Meets sepsis criteria with WBC 17K, tachycardia HR >90, and suspected source - pneumonia. -CXR w/ multiple densities bilaterally possibly multifocal bronchopneumonia versus metastatic disease. -CT Chest with innumerable rounded patchy areas of infiltrate bilaterally likely multifocal bronchopneumonia, images reviewed -Continue antibiotics with IV Vanco and IV cefepime; add Flagyl for possible aspiration (presented with overdose and unresponsive episode) -DuoNebs prn, Symbicort, Mucinex, -Sputum Culture with heavy growth normal respiratory debbi -Blood cultures with NGTD -Consulted pulmonology, appreciate assistance Diffuse Lymphadenopathy: acute. Suspicious for lymphoma -Consulted hematology/oncology, seen by Dr. Gold, appreciate recommendations -General surgery consulted for whole lymph node biopsy Microcytic Anemia: acute. Hgb 6.9 upon arrival, previously 10.5 on 04/01/16. Patient reports LMP 9months ago. No other bleeding reported. -Hemoccult negative. -S/p 2u pRBC transfusion -Start on ferrous sulfate 325mg po bid -Hematology consulted, appreciate recommendations -Monitor CBC Polysubstance Abuse with Acute Overdose: Accidental overdose w/ what appears to be Heroin, multiple ER presentations in the past for same. No Narcan given, pt lethargic but arousable/answering questions upon arrival -Monitor on telemetry. -Tray Line Supervisor on cessation -Patient now AAOx4, resolved. Hepatitis C: acute -outpatient f/up with GI DVT Prophylaxis: SCD/Teds; avoid chemoprophylaxis with upcoming procedure Discharge Planning 1515hrs: Patient left AGAINST MEDICAL ADVICE. Per RN report, patient was found to have unknown drugs and syringe in her purse. Nicole Zelaya PA-C Sep 18, 2017 11:47
[2017-09-18 12:03] VITALS: BP 129/82; PULSE 64; RESP 20; TEMP 98.4; O2SAT 95
[2017-09-18 12:13] LABS: RHEUMATOID FACTOR SCREEN NEGATIVE (NEGATIVE)
[2017-09-18 12:14] LABS: FOLATE 18.5 NG/ML (3.1-17.5)
--- NOTE | 2017-09-18 14:39 | PD.CONS ---
cc: Hector Patrick MD [facility] Service General Surgery Consult Requested By Dr. Gold Reason for Consult Excisional biopsy of palpable axillary lymph node Primary Care Physician Unknown History of Present Illness This is a 32 year old female with a past medical history of anxiety, depression and a long standing substance abuse problems. The patient states that she injected a "white substance" she found at a friend's house last night. She states that this is the last thing she remembers until her friend was performing chest compressions on her. EMS administered Narcan. She reports she noticed a large lymph node in her RIGHT axillary region about three months. She reports that not she has noticed enlarged lymph nodes in her neck and groin. She does have an elevated WBC count. On admission her hemoglobin was 6.9. SHe was transfused [address] chest was obtained which shows an innumerable round patchy areas of infiltrates scattered throughout lungs. A CT abdomen/pelvis has been ordered but not completed. She reports that her last menstrual period was about 9 months ago which is unusual for her. A General Surgery consultation has been requested for excisional lymph node biopsy. Review of Systems Constitutional: COMPLAINS OF: Weight loss, DENIES: Fatigue, Change in appetite Endocrine: DENIES: Polydipsia, Polyuria, Polyphagia Eyes: DENIES: Diplopia, Eye inflammation Ears, nose, mouth, throat: DENIES: Hearing loss Respiratory: DENIES: Apneas Cardiovascular: DENIES: Chest pain Gastrointestinal: DENIES: Abdominal pain, Nausea, Vomiting Genitourinary: DENIES: Dyspareunia Musculoskeletal: DENIES: Joint pain Integumentary: DENIES: Abnormal pigmentation Hematologic/lymphatic: COMPLAINS OF: Lymphadenopathy, DENIES: Bruising Immunologic/allergic: DENIES: Eczema Neurologic: DENIES: Headache, Localized weakness Psychiatric: DENIES: Confusion, Mood changes Past Family Social History Past Medical History Anxiety Depression IVDA Past Surgical History Breast augmentation Ovarian tumor removal---benign Reported Medications None Allergies: Coded Allergies: No Known Allergies (Unverified Allergy, Unknown, 09/16/17) Active Ordered Medications Current Medications Medications (Trade) Dose Ordered Sig/Wanda Route Start Time Stop Time Status Last Admin Pharmacy Profile Note 0 ml @ 0 mls/hr UNSCH OTHER 09/16/17 01:45 Cefepime HCl 1000 mg/Sodium Chloride 100 ml @ 200 mls/hr Q12H IV 09/16/17 09:00 09/18/17 09:15 (Duoneb Neb) 1 ampule Q4HR NEB PRN NEB 09/16/17 01:45 (Symbicort 160-4.5 Mcg Inh) 2 puff Q12HR INH 09/16/17 09:00 09/18/17 09:14 (Mucinex Er) 600 mg BID PO 09/16/17 09:00 09/18/17 09:14 Sodium Chloride 1,000 ml @ 100 mls/hr Q10H IV 09/16/17 01:42 09/18/17 13:42 (NS Flush) 2 ml UNSCH PRN IV FLUSH 09/16/17 01:45 (NS Flush) 2 ml BID IV FLUSH 09/16/17 09:00 09/18/17 09:14 (Reglan Inj) 5 mg Q6H PRN IV PUSH 09/16/17 01:45 (Tylenol) 650 mg Q6H PRN PO 09/16/17 01:45 09/18/17 09:16 (Mitzi-Colace) 1 tab BID PO 09/16/17 09:00 09/17/17 19:51 (Milk Of Magnesia Liq) 30 ml Q12H PRN PO 09/16/17 01:45 (Senokot) 17.2 mg Q12H PRN PO 09/16/17 01:45 (Dulcolax Supp) 10 mg DAILY PRN RECTAL 09/16/17 01:45 (Lactulose Liq) 30 ml DAILY PRN PO 09/16/17 01:45 (Flagyl) 500 mg Q8H PO 09/18/17 09:00 09/18/17 09:15 (Zoloft) 100 mg DAILY PO 09/18/17 09:00 09/18/17 09:19 (Xanax) 1 mg BID PO 09/18/17 09:00 09/18/17 09:19 ([facility] Ordered Lab Info) SPECIFIC LAB TO BE DRAWN:VANCOMYCIN TROUGH DATE TO... ONCE ONCE .XX 09/19/17 01:45 09/19/17 01:46 Vancomycin HCl 1000 mg/Sodium Chloride 250 ml @ 250 mls/hr Q8H IV 09/18/17 10:00 09/18/17 10:18 Family History Father ---well no health problems Mother--- unsure Social History + tobacco use -- 1/2 PPD Denies ETOH + illicit drug use--- opiate/cocaine/heroin Physical Exam Vital Signs Vital Signs Date Time Temp Pulse Resp B/P (MAP) Pulse Ox O2 Delivery O2 Flow Rate FiO2 09/18/17 12:03 98.4 64 20 129/82 (98) 95 09/18/17 10:25 22 09/18/17 08:12 97.8 86 20 108/66 (80) 97 09/18/17 04:17 98.3 75 17 117/75 (89) 98 09/17/17 23:45 98.7 81 16 122/68 (86) 97 09/17/17 19:19 98.4 87 16 120/81 (94) 98 09/17/17 15:31 98.4 103 16 133/72 (92) 95 Physical Exam GENERAL: 32 year old thin female resting in bed SKIN: Warm and dry. HEAD: Atraumatic. Normocephalic. EYES: Pupils equal and round. No scleral icterus. No injection or drainage. ENT: No nasal bleeding or discharge. Mucous membranes pink and moist. NECK: Trachea midline. CARDIOVASCULAR: Regular rate and rhythm. RESPIRATORY: No accessory muscle use. Clear to auscultation. Breath sounds equal bilaterally. GASTROINTESTINAL: Abdomen soft, non-tender, nondistended, flat. Healed low midline incision. MUSCULOSKELETAL: Extremities without clubbing, cyanosis, or edema. No obvious deformities. RIGHT axillary adenopathy; nothing palpable in LEFT axillary; small adenopathy in RIGHT groin; nothing palpable in LEFT groin. NEUROLOGICAL: Awake and alert. No obvious cranial nerve deficits. Motor grossly within normal limits. Five out of 5 muscle strength in the arms and legs. Normal speech. PSYCHIATRIC: Appropriate mood and affect; insight and judgment normal. Laboratory Laboratory Tests Test 09/18/17 00:05 09/18/17 10:35 Creatinine 0.84 Estimat Glomerular Filtration Rate 78 Vancomycin Level Trough 5.2 Uric Acid 3.5 Lactate Dehydrogenase 184 Vitamin B12 Level 580 Folate 18.5 Human Chorionic Gonadotropin, Quant LESS THAN 1 Rheumatoid Factor Screen NEGATIVE Rheumatoid Factor Titer Hepatitis A IgM Antibody NONREACTIVE Hepatitis B Surface Antigen NONREACTIVE Hepatitis B Core IgM Antibody NONREACTIVE Hepatitis C IgG Antibody REACTIVE HIV (1&2) Ab and P24 Ag, 4th Gener NONREACTIVE Date/Time Source Procedure Growth Status 09/16/17 02:10 Blood Peripheral Aerobic Blood Culture - Preliminary NO GROWTH IN 2 DAYS Resulted 09/16/17 02:10 Blood Peripheral Anaerobic Blood Culture - Preliminary NO GROWTH IN 2 DAYS Resulted 09/17/17 11:00 Sputum Expectorated Sputum Gram Stain - Final Resulted 09/17/17 11:00 Sputum Expectorated Sputum Sputum Culture - Preliminary HEAVY GROWTH NORMAL RESPIRATORY ANGELA... Resulted Result Diagram: 09/17/17 0548 09/18/17 0005 Assessment and Plan Assessment and Plan 32 year old IVDA; lymphadenopathy -Plan for excision lymph node biopsy of RIGHT axillary in OR tomorrow -Regular diet; NPO after MN -Obtain consents -CT abd/pelvis today -Oncology following -Discussed procedure including risks which include bleeding and/or infection -Thank you for this consult; We will continue to follow Discussed Condition With Tracy Murray Ms./Women'S Studies Lecturer QUALITY CONTROL SCIENTIST Sep 18, 2017 14:39
--- NOTE | 2017-09-18 15:29 | MB ---
cc: Teresita Gold MD DATE: 09/18/2017 REASON FOR CONSULTATION: Consult requested by Dr. Hill for evaluation of generalized lymphadenopathy and severe anemia. HISTORY OF PRESENT ILLNESS: Magaly is a 32-year-old white female. She has a history of anxiety with depression and 10-year history of IV drug abuse with Dilaudid, heroin and other recreational drugs. The patient was brought in by paramedics after a heroin overdose. According to the records, she was at a friend's house and she injected white powder and then subsequently she become unresponsive. The patient was resuscitated with chest compression and she immediately woke up. She was brought into the emergency room. The blood test shows severe microcytic hyperchromic anemia with a hemoglobin of 6.9. The chest x-ray showed bilateral multifocal pneumonia. The patient is admitted to the hospital for IV antibiotics. Dr. Hill was consulted. The patient was given 2 units of blood transfusion as well. Dr. Hill saw the patient and on his examination, he found out that the patient has cervical and axillary lymphadenopathy. He is requesting hematology/oncology consult for evaluation of lymphadenopathy and severe anemia. The patient has multiple ER visits over the last several years for IV drug overdose. She is complaining of severe anxiety as she did not get Xanax last night. She usually takes Xanax 1 mg twice a day and Zoloft 100 mg daily. The patient stated that she noticed enlarged lymph nodes in the neck and the armpit and groin for the last 2-3 months. However, she did not get any medical advise due to lack of health insurance. She denies any fever, night sweats, or weight loss. She has amenorrhea for the last 8-9 months. She is feeling better since she has been in the hospital. The rest of the review of systems is negative. PAST MEDICAL HISTORY: Depression, anxiety, IV drug abuse for the last 10 years. PAST SURGICAL HISTORY: Breast augmentation with implants. Ovarian cyst removed. ALLERGIES: NONE. MEDICATIONS PRIOR TO COMING TO THE HOSPITAL: Xanax 1 mg twice a day p.r.n., Zoloft 100 mg daily and ibuprofen. FAMILY HISTORY: Parents are alive and well. She has one brother. There is no family history of any malignancy that she knows of. SOCIAL HISTORY: The patient is single, smokes cigarettes a pack a day, also drinks alcohol and she an IV drug abuser with Dilaudid, heroin, cocaine and other drugs. PHYSICAL EXAMINATION: GENERAL: A well-developed, well-nourished white female, in no apparent distress. VITAL SIGNS: Temperature 97.8, heart rate 86, blood pressure 108/66, O2 saturation 97%. HEENT: PERRLA. EOMI, anicteric. No oral lesions noted. NECK: Bilateral cervical lymphadenopathy noted more on the right than the left. LYMPH NODES: The patient has cervical, inguinal and bilateral axillary lymphadenopathy. LUNGS: Clear. No wheezing, rhonchi or rales. HEART: Regular rate and rhythm. ABDOMEN: Soft, nontender. EXTREMITIES: No pedal edema. NEUROLOGIC: Awake, alert, oriented x 3. SKIN: No significant lesions are noted. ASSESSMENT: 1. Generalized lymphadenopathy. This is most likely due to lymphoma until proven otherwise. 2. Intravenous drug abuser for the last 10 years. 3. Anxiety disorder, on Xanax. 4. Depression, on Zoloft. 5. Bilateral bronchopneumonia, currently on the antibiotics. 6. Severe microcytic hypochromic anemia. 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 The source of the iron losses is unknown at the present time. She has been amenorrheic for the last 8-9 months. Her stools are heme negative when she came into the emergency room. PLAN: I have reviewed her available records, and I have discussed with the patient regarding the generalized lymphadenopathy. She has clearly cervical, axillary, and inguinal lymphadenopathy. This is most likely consistent with lymphoma. I will cancel the order for interventional radiologist to do a needle biopsy of the lymph node as this would not give us adequate information if this turned out to be lymphoma. We need to do molecular tests and we need to do immunostains to figure out the type of the lymphoma. In that case, excisional whole lymph node biopsy is better to diagnose the type of the lymphoma. I will ask a general surgeon for excisional biopsy of the right axillary lymph node which is easily palpable. The patient had a CAT scan of the chest, which show multiple rounded patchy areas of infiltrate scattered throughout the lungs. There is no evidence of mediastinal or hilar lymphadenopathy. The radiologist did not mention about axillary lymphadenopathy, which is clearly palpable on examination. I will get the CAT scan of the abdomen and pelvis for evaluation of abdominal and pelvic lymphadenopathy and splenomegaly. Regarding the microcytic hypochromic anemia, the patient already had received 2 units of blood transfusion and no iron studies were checked before the transfusion. I had called the chemistry lab and discussed with the crop and soil technician, Eleonora to run the iron studies on the first specimen when she came in to the emergency room. I will check the B12, folate, LDH, hemoglobin electrophoresis and quantitative hemoglobin A2 for evaluation of thalassemia minor given that the MCV is very, very low. I will also check the SHERRY and a rheumatoid factor for evaluation of possible inflammatory lymphadenopathy. The patient has no menses for the last 8-9 months. I will check the urine test before she gets any further radiological studies. Since the patient has been IV drug abuser, I will check the HIV and hepatitis screening panel as well. We will check the uric acid also as a baseline prior to giving any chemotherapy which certainly sometimes can cause tumor lysis syndrome. I have put an order for her to take her home medication, which is Xanax 1 mg twice a day and Zoloft 100 mg once a day. She also takes ibuprofen, but I will hold off on that for now. Further recommendations will be based on her hospital stay and the lymph node biopsy results. Thank you for asking my opinion. MD KERRY Armstrong/GABRIEL , 02:27 PM , 03:28 PM
[2017-09-18] MEDS ORDERED: FERROUS SULFATE 325 MG (65 MG ELEMENTAL IRON) TAB PO SCH (17:00)
[2017-09-19] MEDS ORDERED: PHARMACY ORDERED LAB ONE (01:45)
== END 2017-09-18 15:41 | disposition left against medical advice (07) | DRG 871 ==
LOC: NEPC 22:42 → NEDA 09-16 01:54 → NEDH 09-16 05:02 → NEPGCP 09-16 11:47 → NEPFCDU 09-16 14:46 → N04B 09-18 13:38
PROVIDERS: ADMIT Internal Medicine; ATTEND Internal Medicine
DX: A41.9 Sepsis, unspecified organism (principal); J18.0 Bronchopneumonia, unspecified organism; F17.210 Nicotine dependence, cigarettes, uncomplicated; D50.9 Iron deficiency anemia, unspecified; B19.20 Unspecified viral hepatitis C without hepatic coma; F32.9 Major depressive disorder, single episode, unspecified; T40.1X1A Poisoning by heroin, accidental (unintentional), initial encounter; F41.9 Anxiety disorder, unspecified; R59.1 Generalized enlarged lymph nodes; F19.10 Other psychoactive substance abuse, uncomplicated; Z98.82 Breast implant status
CPT/HCPCS: 36430; 71045; 71260; 80048; 80053; 80074; 80202; 82565; 82607; 82728; 82746; 83020; 83021; 83540; 83550; 83615; 84550; 84702; 85007; 85025; 85027; 86038; 86430; 86850; 86900; 86901; 86920; 87040; 87070; 87205; 87389; 99291; G0475; J0692; J2310; J2543; J3370; J7030; J7050; J7060; P9016; Q9963; Q9967

== ENCOUNTER 2017-09-21 15:16 | Emergency (ER) | payer OTHER ==
[2017-09-21] VITALS (7 sets, daily range): BP systolic 110–144; BP diastolic 60–76; PULSE 52–78; RESP 6–17; O2SAT 87–100
[~2017-09-21] VITALS: Ht 165.1 cm; Wt 59.0 kg
[2017-09-21] MEDS ORDERED: NALOXONE HCL 0.4 MG/ML AMP IV PUSH ONE ×2 (15:45→16:15)
[2017-09-21] MEDS ORDERED: SODIUM CHLOR 0.9% 1000 ML INJ 1,000 ML IV ONE (15:45)
--- NOTE | 2017-09-21 15:54 | PD ---
HPI Chief Complaint: Altered Mental Status Time Seen by Provider: 15:30 Travel History International Travel<30 days: No Contact w/Intl Traveler<30days: No Traveled to known affect area: No History of Present Illness HPI Is a 32-year-old woman who presents to the emergency department brought in by law enforcement for substance abuse. Law-enforcement was originally called for trespassing. When they make contact with her she was in the bathroom. In the hotel room. When they got the door open to the hotel room in the bathroom there were needles everywhere, as well as muscle relaxer drugs. She agreed to go to [facility]. She was alert and responsive at that time. When they get the circumflex marginal she is less responsive and they would her. They also had no beds. Law-founder chairman and chief creative officer serving her to the emergency department here when she became progressively less responsive. On arrival to the emergency department she was very somnolent, with decreased respirations. Patient unable to provide any additional history. Review of records show she is been seen multiple times for heroin overdose in the past. History Past Medical History Narrative Medical From records: Anxiety/depression Tobacco abuse IVDU with Dilaudid/heroin Social History Alcohol Use: Yes (none recently) Tobacco Use: Yes (04/12 ppd) Allergies-Medications (Allergen,Severity, Reaction): Coded Allergies: No Known Allergies (Unverified Allergy, Unknown, 09/16/17) Reported Meds & Prescriptions Reported Meds & Active Scripts Active No Active Prescriptions or Reported Medications Reported Sprintec 28 (Norgestimate-Ethinyl Estradiol) 0.25-35 mg-Mcg Tab 1 Tab PO DAILY Review of Systems Except as stated in HPI: all other systems reviewed are Neg Physical Exam Narrative GENERAL: This is a 32-year-old woman, fairly obtunded, sluggish. SKIN: Focused skin assessment warm/dry. Multiple areas of both track duran, superficial skin infections, and old scarring. HEAD: Atraumatic. Normocephalic. EYES: Pupils equal and round. No scleral icterus. No injection or drainage. ENT: No nasal bleeding or discharge. Mucous membranes pink and moist. NECK: Trachea midline. No JVD. CARDIOVASCULAR: Regular rate and rhythm. No murmur appreciated. RESPIRATORY: Decreased respirations and shallow ineffective respirations. GASTROINTESTINAL: Abdomen soft, non-tender, nondistended. Hepatic and splenic margins not palpable. MUSCULOSKELETAL: No obvious deformities. No clubbing. No cyanosis. No edema. NEUROLOGICAL: Fairly unresponsive. Will have intermittent episodes where she will awaken and look around gas, but then quickly sedated again. Data Data Last Documented VS Vital Signs Date Time Temp Pulse Resp B/P (MAP) Pulse Ox O2 Delivery O2 Flow Rate FiO2 09/21/17 16:05 62 6 119/67 (84) 88 Nasal Cannula 2.00 Orders Orders Complete Blood Count With Diff (09/21/17 15:36) Comprehensive Metabolic Panel (09/21/17 15:36) Iv Access Insert/Monitor (09/21/17 15:36) Naloxone Inj (Narcan Inj) (09/21/17 15:45) Sodium Chlor 0.9% 1000 Ml Inj (Ns 1000 M (09/21/17 15:45) Naloxone Inj (Narcan Inj) (09/21/17 16:15) Naloxone Inj (Narcan Inj) (09/21/17 16:06) Labs Laboratory Tests Test 09/21/17 15:30 White Blood Count 16.6 TH/MM3 Red Blood Count 4.75 MIL/MM3 Hemoglobin 8.0 GM/DL Hematocrit 26.2 % Mean Corpuscular Volume 55.1 FL Mean Corpuscular Hemoglobin 16.9 PG Mean Corpuscular Hemoglobin Concent 30.7 % Red Cell Distribution Width 28.2 % Platelet Count 403 TH/MM3 Mean Platelet Volume 8.0 FL Neutrophils (%) (Auto) 83.7 % Lymphocytes (%) (Auto) 7.4 % Monocytes (%) (Auto) 7.4 % Eosinophils (%) (Auto) 1.3 % Basophils (%) (Auto) 0.2 % Neutrophils # (Auto) 13.9 TH/MM3 Lymphocytes # (Auto) 1.2 TH/MM3 Monocytes # (Auto) 1.2 TH/MM3 Eosinophils # (Auto) 0.2 TH/MM3 Basophils # (Auto) 0.0 TH/MM3 CBC Comment AUTO DIFF Differential Comment AUTO DIFF CONFIRMED Platelet Estimate NORMAL Platelet Morphology Comment NORMAL Target Cells 1+ Ovalocytes 1+ Blood Urea Nitrogen 19 MG/DL Creatinine 0.88 MG/DL Random Glucose 83 MG/DL Total Protein 8.4 GM/DL Albumin 2.5 GM/DL Calcium Level 8.6 MG/DL Alkaline Phosphatase 148 U/L Aspartate Amino Transf (AST/SGOT) 12 U/L Alanine Aminotransferase (ALT/SGPT) 10 U/L Total Bilirubin 0.3 MG/DL Sodium Level 143 MEQ/L Potassium Level 3.6 MEQ/L Chloride Level 107 MEQ/L Carbon Dioxide Level 25.0 MEQ/L Anion Gap 11 MEQ/L Estimat Glomerular Filtration Rate 74 ML/MIN MDM Medical Decision Making Medical Screen Exam Complete: Yes Emergency Medical Condition: Yes Interpretation(s) My review of EKG: Sinus bradycardia at a rate of 57, normal axis, normal intervals, no acute ischemia. Differential Diagnosis Opioid overdose, muscle relaxer overdose, other Narrative Course Medical decision making 29-year-old woman presents emergency department for substance abuse and overdose. Does not meet criteria for Chavez act. I completed the Chavez act and filled out a release form. She will be monitored here in the emergency department treated for what is likely opioid overdose. Will check basic labs. Reassess. Jasen Tolentino MD Sep 21, 2017 15:54
[2017-09-21] MEDS ORDERED: NALOXONE HCL 2 MG/2 ML VIAL ONE (16:06)
[2017-09-21 16:14] LABS: AUTOMATED NEUTROPHIL # 13.9 TH/MM3 (1.8-7.7); BASOPHIL % 0.2 % (0.0-2.0); EOSINOPHIL # 0.2 TH/MM3 (0-0.4); EOSINOPHIL % 1.3 % (0.0-4.0); HEMATOCRIT 26.2 % (35.0-46.0); LYMPH % 7.4 % (9.0-44.0); LYMPHOCYTE # 1.2 TH/MM3 (1.0-4.8); MEAN CELL VOLUME 55.1 FL (80.0-100.0); MEAN CORPUSCULAR HEMOGLOBIN 16.9 PG (27.0-34.0); MEAN CORPUSCULAR HGB CONC 30.7 % (32.0-36.0); MONO % 7.4 % (0.0-8.0); MONOCYTE # 1.2 TH/MM3 (0-0.9); NEUT % 83.7 % (16.0-70.0); PLATELET COUNT 403 TH/MM3 (150-450); RED BLOOD COUNT 4.75 MIL/MM3 (4.00-5.30); RED CELL DISTRIBUTION WIDTH 28.2 % (11.6-17.2); WHITE BLOOD COUNT 16.6 TH/MM3 (4.0-11.0)
[2017-09-21 16:33] LABS: ALBUMIN 2.5 GM/DL (3.4-5.0); ALT (GPT) 10 U/L (10-53); AST (GOT) 12 U/L (15-37); BLOOD UREA NITROGEN 19 MG/DL (7-18); CALCIUM 8.6 MG/DL (8.5-10.1); CHLORIDE 107 MEQ/L (98-107); CREATININE 0.88 MG/DL (0.50-1.00); GLOMERULAR FILTRATION RATE 74 ML/MIN (>89); GLUCOSE,RANDOM 83 MG/DL (74-106); SODIUM (NA) 143 MEQ/L (136-145)
[2017-09-21 16:36] LABS: ALKALINE PHOSPHATASE 148 U/L (45-117); TOTAL BILIRUBIN ADULT 0.3 MG/DL (0.2-1.0); TOTAL PROTEIN 8.4 GM/DL (6.4-8.2)
[2017-09-21 16:44] LABS: OVALOCYTES 1+ (NORMAL); TARGET CELLS 1+ (NORMAL)
--- NOTE | 2017-09-21 18:39 | PD ---
Physical Exam Date Seen by Provider: Sep 21, 2017 Data Data Last Documented VS Vital Signs Date Time Temp Pulse Resp B/P (MAP) Pulse Ox O2 Delivery O2 Flow Rate FiO2 09/21/17 19:55 55 12 115/70 (85) 100 Nasal Cannula 2.00 Orders Orders Complete Blood Count With Diff (09/21/17 15:36) Comprehensive Metabolic Panel (09/21/17 15:36) Iv Access Insert/Monitor (09/21/17 15:36) Naloxone Inj (Narcan Inj) (09/21/17 15:45) Sodium Chlor 0.9% 1000 Ml Inj (Ns 1000 M (09/21/17 15:45) Naloxone Inj (Narcan Inj) (09/21/17 16:15) Naloxone Inj (Narcan Inj) (09/21/17 16:06) Electrocardiogram (09/21/17 15:25) Electrocardiogram (09/21/17 19:58) Labs Laboratory Tests Test 09/21/17 15:30 White Blood Count 16.6 TH/MM3 Red Blood Count 4.75 MIL/MM3 Hemoglobin 8.0 GM/DL Hematocrit 26.2 % Mean Corpuscular Volume 55.1 FL Mean Corpuscular Hemoglobin 16.9 PG Mean Corpuscular Hemoglobin Concent 30.7 % Red Cell Distribution Width 28.2 % Platelet Count 403 TH/MM3 Mean Platelet Volume 8.0 FL Neutrophils (%) (Auto) 83.7 % Lymphocytes (%) (Auto) 7.4 % Monocytes (%) (Auto) 7.4 % Eosinophils (%) (Auto) 1.3 % Basophils (%) (Auto) 0.2 % Neutrophils # (Auto) 13.9 TH/MM3 Lymphocytes # (Auto) 1.2 TH/MM3 Monocytes # (Auto) 1.2 TH/MM3 Eosinophils # (Auto) 0.2 TH/MM3 Basophils # (Auto) 0.0 TH/MM3 CBC Comment AUTO DIFF Differential Comment AUTO DIFF CONFIRMED Platelet Estimate NORMAL Platelet Morphology Comment NORMAL Target Cells 1+ Ovalocytes 1+ Blood Urea Nitrogen 19 MG/DL Creatinine 0.88 MG/DL Random Glucose 83 MG/DL Total Protein 8.4 GM/DL Albumin 2.5 GM/DL Calcium Level 8.6 MG/DL Alkaline Phosphatase 148 U/L Aspartate Amino Transf (AST/SGOT) 12 U/L Alanine Aminotransferase (ALT/SGPT) 10 U/L Total Bilirubin 0.3 MG/DL Sodium Level 143 MEQ/L Potassium Level 3.6 MEQ/L Chloride Level 107 MEQ/L Carbon Dioxide Level 25.0 MEQ/L Anion Gap 11 MEQ/L Estimat Glomerular Filtration Rate 74 ML/MIN [facility] Medical Record Reviewed: Yes Supervised Visit with LISA: No Interpretation(s) Vital Signs Date Time Temp Pulse Resp B/P (MAP) Pulse Ox O2 Delivery O2 Flow Rate FiO2 09/21/17 17:51 74 17 119/76 (90) 100 Nasal Cannula 09/21/17 16:30 78 17 127/76 (93) 100 Nasal Cannula 2.00 09/21/17 16:05 62 6 119/67 (84) 88 Nasal Cannula 2.00 09/21/17 15:24 62 12 97 2.00 09/21/17 15:19 60 6 110/60 (77) 87 Narrative Course Patient sent out to me at change of shift by Dr. Tolentino Patient is a 32-year-old female who is brought to the emergency room by law enforcement as she was found trespassing property. Reports that she was found with drug paraphernalia in the hotel room bathroom. Patient agreed to go to [facility] when she became a little less responsive, was brought to the ER evaluation. Patient was given 2 doses of Narcan 0.6 mg, patient currently maintaining her own airway, Chavez act was lifted by Dr. Prather as she does not meet Chavez Act criteria. 7pm: patient re-evaluated, patient not apneic, patient with no acute distress and maintaining her own airway. 10pm: patient in no acute distress Diagnosis Primary Impression: Accidental heroin overdose Qualified Codes: T40.1X1A - Poisoning by heroin, accidental (unintentional), initial encounter Patient Instructions: General Instructions Additional Instruction: Please stop using drugs Please follow up with your primary care doctor Loree Plasencia DO Sep 21, 2017 18:39
[2017-09-22 00:20] VITALS: BP 123/87; PULSE 68; RESP 9; O2SAT 100
[2017-09-22] MEDS ORDERED: ONDANSETRON ODT 4 MG TAB PO ONE (02:45)
--- NOTE | 2017-09-22 12:28 | EKG ---
Date Performed: 09/21/2017 Time Performed: 15:25:14 PTAGE: 32 years EKG: SINUS BRADYCARDIA WITH SINUS ARRHYTHMIA BORDERLINE ECG PREVIOUS TRACING : 10/08/2013 20.12 T-wave changes are more prominent since the prior tracing, cannot rule out ischemia. DOCTOR: Willy Wheat Interpretating Date/Time 09/22/2017 12:25:57
--- NOTE | 2017-09-22 12:54 | EKG ---
Date Performed: 09/21/2017 Time Performed: 19:58:04 PTAGE: 32 years EKG: SINUS BRADYCARDIA PROLONGED QT INTERVAL ABNORMAL ECG PREVIOUS TRACING :07.01 Since the previous tracing, no significant change noted DOCTOR: Willy Wehat Interpretating Date/Time 09/22/2017 12:51:23
== END 2017-09-22 04:28 | disposition home or self-care (01) ==
LOC: NEPD 15:16
DX: T40.1X1A Poisoning by heroin, accidental (unintentional), initial encounter (principal); F17.200 Nicotine dependence, unspecified, uncomplicated; R00.1 Bradycardia, unspecified
CPT/HCPCS: 80053; 85025; 93005; 96361; 96374; 96376; 99284; J2310; J7030